=== PATIENT | male | born 1950 | race Caucasian/White ===

== ENCOUNTER 2024-04-02 10:40 | Observation (INO) | payer MEDICARE ==
[~2024-04-02] VITALS: Ht 188 cm; Wt 131.4 kg
--- NOTE | 2024-04-02 10:58 | NUR ---
PATIENT TO ER ROOM 6 WITH STEADY GAIT.
[2024-04-02 11:44] LABS: BASO% 0.3 % (0-3); HEMATOCRIT 50.1 % (39.0-50.0); HEMOGLOBIN 16.1 g/dl (14.0-18.0); IMMATURE GRANULOCYTES 0.1 % (0.0-5.0); LYMPH% 8.9 % (15-41); MEAN CELL VOLUME 90.9 fL CALC (80.0-100.0); MEAN CORPUSCULAR HGB 29.2 pG CALC (26.0-32.0); MEAN CORPUSCULAR HGB CONC 32.1 g/dL CAL (32.0-36.0); MONO% 10.5 % (2-13); NEUT# 7.58 thou/uL (1.82-7.42); NEUT% 76.2 % (42-76); RED BLOOD COUNT 5.51 mill/uL (4.70-6.10)
[2024-04-02] MEDS ORDERED: ASPIRIN 81 MG/TAB PO ONE (11:50)
[2024-04-02] MEDS ORDERED: Heparin SODIUM (Porcine) 5,000 UNITS/ML SDV IV ONE (11:50)
[2024-04-02] MEDS ORDERED: Heparin SODIUM (Porcine) 500 ML IV ONE ×2 (11:55)
--- NOTE | 2024-04-02 12:00 | NUR ---
NO APPARENT DISTRESS NOTED. DENIES CHEST PAIN.
[2024-04-02 12:04] LABS: ALBUMIN 4.4 g/dL (3.2-5.0); ALKALINE PHOSPHATASE 83 u/l (38-126); ANION GAP 11 (6-22 (CALC)); BILIRUBIN, TOTAL 1.2 mg/dL (0.2-1.3); BUN 14 mg/dL (8-23); BUN/CREATININE RATIO 17 (12-20 (CALC)); CARBON DIOXIDE 31 mmol/l (22-30); CHLORIDE 101 mmol/l (95-108); CREATININE 0.8 mg/dL (0.7-1.3); ESTIMATED GFR 92 ML/MIN (>=90 (CALC)); POTASSIUM 3.7 mmol/l (3.5-5.1); SGOT/AST 33 u/l (19-48); SODIUM 139 mmol/l (137-146); TOTAL PROTEIN 7.6 g/dL (6.3-8.2)
[2024-04-02] MEDS ORDERED: FOLIC ACID1 MG PO (12:13)
[2024-04-02] MEDS ORDERED: PRAVASTATIN20 MG PO (12:14)
[2024-04-02] MEDS ORDERED: HYDROCHLOROT25 MG PO (12:14)
[2024-04-02] MEDS ORDERED: BAYER CHEWABLE81 MG PO (12:15)
--- NOTE | 2024-04-02 12:42 | NUR ---
MD AT BEDSIDE TO DISCUSS RESULTS AND POC
--- NOTE | 2024-04-02 13:34 | NUR ---
TO CT SCAN VIA WHEELCHAIR, HEPARIN GTT INFUSING #20 RAC WITHOUT DIFFICULTY. RESPS EVEN AND UNLABORED ON O2 AT 2L VIA NC. DENIES PAIN OR DISCOMFORT.
[2024-04-02 13:55] LABS: INTERNATIONAL NORMALIZED RATIO 1.1 RATIO (0.7-1.3)
[2024-04-02 13:59] LABS: PROTHROMBIN TIME 11.3 SECONDS (9.0-12.5)
--- NOTE | 2024-04-02 14:30 | NUR ---
Reassessment of patient completed. No distress noted.
--- NOTE | 2024-04-02 15:37 | NUR ---
MD AT BEDSIDE TO DISCUSS RESULTS AND POC
[2024-04-02] MEDS ORDERED: MAGNESIUM HYDROXIDE 30 ML UDC PO PRN (16:10)
[2024-04-02] MEDS ORDERED: SODIUM CHLORIDE 0.9% 1,000 ML IV PRN (16:10)
[2024-04-02] MEDS ORDERED: ACETAMINOPHEN 325 MG/TAB PO PRN (16:10)
--- NOTE | 2024-04-02 16:10 | NUR ---
SITTING ON EDGE OF BERD EATING A SANDWICH. DENIES PAIN OR DISCOMFORT.
[2024-04-02] MEDS ORDERED: Heparin SODIUM (Porcine) 500 ML IV PRN (16:15)
[2024-04-02] MEDS ORDERED: IPRATROPIUM-Albuterol 0.5MG-2.5MG/3 ML NEB PRN (16:15)
--- NOTE | 2024-04-02 16:48 | NUR ---
REPORT CALLED TO EMMA VELOZ
--- NOTE | 2024-04-02 16:48 | NUR ---
REPORT RECEIVED FROM KRISTINARN
--- NOTE | 2024-04-02 17:14 | NUR ---
PT ARRIVED TO MED/SURG ROOM 271 IN STABLE CONDITION VIA WC ACCOMPANIED BY STAFF MEMBER.PT AMBULATED TO STANDING SCALE AND BEDSIDE. WT AND VS OBTAINED. PT A&O X3, ORIENTED TO ROOM AND CALL LIGHT SYSTEM. 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 PT DENIES ANY CURRENT PAIN OR DISCOMFORTS, PAIN SCALE AND REPORTING EDUCATED;ASSESSMENT COMPLETED.RESPIRATIONS EVEN AND UNLABORED ON RA, CLEAR LUNG SOUNDS.ABDOMEN SOFT ON PALPATION AND ACTIVE IN ALL 4 QUADRANTS, LAST BM 04/02/24. STRONG PEDAL PULSES;SKIN INTACT.TELE MONITORING [address] #20G TO RAC INFUSING HEPRAIN GTT PER ORDER WITH EASE. #18G TO LAC FLUSHED AND PATENT, NS STARTED AT 100ML/HR PER ORDER.FALL AND ALLERGY BAND APPLIED TO RIGHT ARM. SPECIMEN CUP PROVIDED FOR SPUTUM SAMPLE. PT DENIES ANY ADDITIONAL QUESTIONS OR NEEDS.ENCOURAGED TO CALL FOR ASSISTANCE IF NEEDED.FALL PRECAUTIONS IN PLACE WITH BED IN THE LOWEST POSITION AND CALL LIGHT IN REACH;FREQUENT ROUNDS MADE.
--- NOTE | 2024-04-02 17:20 | NUR ---
TO MED SURG VIA WHEELCHAIR, O2 AT 2L VIA NC, TELE MONITOR #[address] ALL PERSONAL BELONGINGS WITH PT
[2024-04-02] MEDS ORDERED: BENZOCAINE-MENTHOL (MOUTH-THRO 1 LOZ LOZ PO PRN (17:30)
[2024-04-02] MEDS ORDERED: AZITHROMYCIN 500 MG in SODIUM CHLORIDE 0.9% 250 ML IV SCH (17:30)
[2024-04-02] MEDS ORDERED: guaiFENesin-CODEINE 200-20 MG/10 ML UDC PO PRN (17:30)
[2024-04-02 17:35] VITALS: BP 167/73
[2024-04-02] MEDS ORDERED: hydrALAZINE HCL 20 MG/ML VIAL(1 ML) IV PRN (17:35)
[2024-04-02 18:37] VITALS: BP 190/74
--- NOTE | 2024-04-02 19:00 | NUR ---
APTT CAME BACK AT 49.5. NO CHANGES MAINTAIN GTT AT 1000 UNITS/HR. RECHECK IN 6 HRS.
--- NOTE | 2024-04-02 19:30 | NUR ---
PT ABLE TO AMBULATE TO RESTROOM WITH STAND BY ASSISTANCE. NO DISTRESS NOTED ON ASSESSMENT. PT REPORTS NO PAIN AT THIS TIME. IV SITES CHECKED WORKING PROPERLY WITH INFUSIONS ONGOING. PT ON RA LUNGS CLEAR WITH A COUGH. PT STATED THAT AT TIME HIS COUGH IS PRODUCTIVE, YELLOW. CALL LIGHT WITHIN REACH. PLAN OF CARE ONGOING.
[2024-04-02 20:50] VITALS: BP 172/82
[2024-04-03 00:41] VITALS: BP 156/74
--- NOTE | 2024-04-03 00:45 | NUR ---
PT SLEEPING EASILY AROUSABLE NO DISTRESS NOTED ON EXAM. CALL LIGHT WITHIN REAC. ICE CHIPS PROVIDED. HEPARIN GTT INFUSION WORKING PROPERLY.
--- NOTE | 2024-04-03 04:15 | NUR ---
PT SLEEPING NO DISTRESS NOTED ON EXAM. CALL LIGHT WITHIN REACH. HEPARIN GTT ONGOING WORKING PROPERLY. PLAN OF CARE ONGOING.
[2024-04-03 04:41] VITALS: BP 162/77
--- NOTE | 2024-04-03 07:32 | NUR ---
PATIENT LYING IN BED AWAKE. BREATHING UNLABORED ON ROOM AIR. TELE INTACT. IV IN LAC AND RAC INFUSING FLUIDS PER EMAR;SITE CLEAN AND INTACT. PT DENIES ANY PAIN OR N/D/V AT THIS TIME. PT HAS C/O OF COUGH. ASSESSMENT COMPLETED. BED IN LOWEST POSITION. PERSONAL ITEMS WELL CALL LIGHT WITHIN REACH. NO OTHER NEEDS AT THIS TIME. POC ONGOING.
[2024-04-03 07:57] VITALS: BP 180/82
[2024-04-03 08:35] LABS: BASO% 0.3 % (0-3); EOS% 3.9 % (0-8); HEMOGLOBIN 15.7 g/dl (14.0-18.0); IMMATURE GRANULOCYTES 0.2 % (0.0-5.0); LYMPH% 11.4 % (15-41); MEAN CELL VOLUME 93.3 fL CALC (80.0-100.0); MEAN CORPUSCULAR HGB 29.3 pG CALC (26.0-32.0); MEAN CORPUSCULAR HGB CONC 31.4 g/dL CAL (32.0-36.0); MONO% 10.9 % (2-13); NEUT# 6.5 thou/uL (1.82-7.42); NEUT% 73.3 % (42-76); RED BLOOD COUNT 5.36 mill/uL (4.70-6.10)
[2024-04-03] MEDS ORDERED: ASPIRIN EC 81 MG/TAB PO SCH (09:00)
[2024-04-03] MEDS ORDERED: hydroCHLOROthiazide 25 MG/TAB PO SCH (09:00)
[2024-04-03 10:17] LABS: ALBUMIN 3.8 g/dL (3.2-5.0); CHOLESTEROL HDL RATIO 3.1 (<4.4 (CALC)); CREATININE 0.8 mg/dL (0.7-1.3); MAGNESIUM 2.2 mg/dL (1.6-2.3); TOTAL PROTEIN 6.6 g/dL (6.3-8.2)
[2024-04-03] MEDS ORDERED: DOXYCYCLINE100 MG PO (11:19)
[2024-04-03 11:20] VITALS: BP 171/87
--- NOTE | 2024-04-03 12:16 | NUR ---
PATIENT SITTING UP ON EDGE OF BED EATING LUNCH. BREATHING UNLABORED ON ROOM AIR. TELE INTACT. PT DENIES ANY PAIN OR N/D/V AT THIS TIME. PT STATED HIS SONS ARE BRINGING HIM SOME CLOTHES TO LEAVE IN. PERSONAL ITEMS WELL CALL LIGHT WITHIN REACH. BED IN LOWEST POSITION. POC ONGOING.
--- NOTE | 2024-04-03 13:04 | NUR ---
Discharge instructions given. Patient verbalizes understanding of same. Discharged in stable condition via Ambulatory to Home with *Other. All belongings sent with pt. Tele #[phone] removed and placed in bin at nursing station.
--- NOTE | 2024-04-04 11:09 | NUR ---
Discharge follow up call completed 04/04/24. Patient states he is doing well since discharge. Patient has prescribed medication and is taking as directed. 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 No needs or concerns verbalized at this time.
== END 2024-04-03 13:03 | disposition home or self-care (01) ==
LOC: ED 10:40 → ED-I 14:56 → ED 15:28 → MS2 15:29
PROVIDERS: Family Medicine; Nurse Practitioner Family; ADMIT Internal Medicine; ATTEND Internal Medicine
DX: J20.9 Acute bronchitis, unspecified (principal); R94.31 Abnormal electrocardiogram [ECG] [EKG]; R09.02 Hypoxemia; I10 Essential (primary) hypertension; I25.10 Atherosclerotic heart disease of native coronary artery without angina pectoris; G50.0 Trigeminal neuralgia; Z85.01 Personal history of malignant neoplasm of esophagus; Z63.4 Disappearance and death of family member; Z95.5 Presence of coronary angioplasty implant and graft; Z20.822 Contact with and (suspected) exposure to COVID-19
CPT/HCPCS: G0378; J0456; J0696; J1644; Q9967